=== PATIENT | female | born 1940 | race Caucasian/White ===

== ENCOUNTER 2023-03-07 06:56 | Inpatient (IN) | payer MEDICARE ==
[2023-03-05 14:54] LABS: BASOPHILS # (AUTO) 0.1 (0.0-0.1); BASOPHILS % 1.1 % (0.0-1.0); EOSINOPHILS # (AUTO) 0.1 (0.0-0.4); EOSINOPHILS % 1.3 % (0.0-6.0); HEMATOCRIT 40.2 % (34.2-44.1); HEMOGLOBIN 13.1 g/dL (12.0-16.0); LYMPHOCYTES # (AUTO) 2.1 (1.0-3.2); LYMPHOCYTES % 34.9 % (18.0-39.1); MEAN CORPUSCULAR HEMOGLOBIN 30.6 pg (28-32); MEAN CORPUSCULAR HGB CONC 32.6 g/dL (31-35); MEAN CORPUSCULAR VOLUME 93.9 fL (81-99); MONOCYTES # (AUTO) 0.5 (0.2-0.8); MONOCYTES % 8.6 % (4.4-11.3); NEUTROPHILS # (AUTO) 3.3 (2.1-6.9); NEUTROPHILS % 53.8 % (38.7-80.0); PLATELET COUNT 272 x10e3/uL (140-360); RED BLOOD COUNT 4.28 x10e6/uL (3.6-5.1); RED CELL DISTRIBUTION WIDTH 13.5 % (11.7-14.4); WHITE BLOOD COUNT 6.13 x10e3/uL (4.8-10.8)
[2023-03-05 15:12] LABS: ANION GAP 14.9 mmol/L (8-16); CALCIUM 9.3 mg/dL (8.4-10.2); CREATININE, SERUM 0.76 mg/dL (0.57-1.11); POTASSIUM 3.9 mmol/L (3.5-5.1)
[~2023-03-07] VITALS: Ht 162.6 cm; Wt 56.7 kg
[~2023-03-07 06:56] MED LIST: ALTOPREV40 MG PO; ASPIRIN81 MG PO; CALCIUM PO; FISH OIL 1,001000 M1 PO; LISINOPRIL5 MG PO; METOPROLOL SUCC25 MG PO; VITAMIN C1000 MG PO; VITAMIN D350 MC1 PO
[2023-03-07] MEDS ORDERED: LACTATED RINGER'S 1,000 ML ONE (07:23)
[2023-03-07] MEDS ORDERED: BUPIVACAINE 0.25% 30ML SDV ONE (08:16)
[2023-03-07] MEDS ORDERED: DEXMEDETOMIDINE HCL 0 ML ONE (08:56)
[2023-03-07] MEDS ORDERED: ACETAMINOPHEN 1000 MG/100 ML 100 ML IV ONE (08:57)
[2023-03-07] MEDS ORDERED: HYDROMORPHONE 1MG/1ML INJ ONE (08:57)
[2023-03-07] MEDS ORDERED: SUGAMMADEX SODIUM 200 MG/2 ML VIAL IV ONE (08:57)
[2023-03-07] MEDS ORDERED: ROPIVACAINE 246.25 MG, EPINEPHRINE HCL 1:1000 1ML 0.5 MG, CLONIDINE HCL 0.08 MG, KETORO... INJ ONE ×5 (11:30)
[2023-03-07] MEDS ORDERED: DEXAMETHASONE SOD PHOS INJ 4 MG/ML SDV ONE (12:00)
[2023-03-07] MEDS ORDERED: PROPOFOL IV EMULSION 10 MG/ML 20 ML VIAL ONE (12:00)
[2023-03-07] MEDS ORDERED: SUCCINYLCHOLINE CHLORIDE 20 MG/ML 10ML VIAL ONE (12:00)
[2023-03-07] MEDS ORDERED: ONDANSETRON HCL INJ 2MG/ML 2ML 2 MG/ML VIAL ONE (12:00)
[2023-03-07] MEDS ORDERED: LIDOCAINE HCL 2% LOCAL INJ 5 ML SDV VIAL INJ ONE (12:00)
[2023-03-07] MEDS ORDERED: ROCURONIUM BROMIDE 10 MG/ML 5ML VIAL IV ONE (12:00)
[2023-03-07] MEDS ORDERED: SEVOFLURANE INHAL SOLN 250 ML PEN BTL ONE (12:00)
[2023-03-07] MEDS ORDERED: ONDANSETRON HCL INJ 2MG/ML 2ML 2 MG/ML VIAL IV PRN (12:15)
[2023-03-07 13:49] VITALS: BP 144/58; PULSE 62; RESP 14; TEMP 97.9; O2SAT 98
[2023-03-07] MEDS: SODIUM CHLORIDE 0.9% 1000ML 1,000 ML IV SCH (15:20)
[2023-03-07] MEDS ORDERED: FENTANYL CITRATE/PF 100MCG/2 ML INJ ONE (15:24)
[2023-03-07 16:23] VITALS: BP 144/58; PULSE 62; RESP 14; TEMP 97.9; O2SAT 98
[2023-03-07 16:24] VITALS: BP 110/44; PULSE 66; RESP 14; TEMP 97.7; O2SAT 98
[2023-03-07] MEDS ORDERED: ACETAMINOPHEN 1000 MG/100 ML IV PRN (17:00)
[2023-03-07 18:13] VITALS: BP 110/44; PULSE 66; RESP 15; TEMP 97.7; O2SAT 98
[2023-03-07 20:02] VITALS: BP 130/60; PULSE 69; RESP 18; TEMP 98.1; O2SAT 95
[2023-03-07] MEDS: HYDROCODONE/APAP 5MG-325MG TAB PO PRN (20:33)
[2023-03-07] MEDS: LISINOPRIL 2.5 MG TAB PO SCH (20:33)
[2023-03-08] VITALS (9 sets, daily range): BP systolic 113–145; BP diastolic 45–70; PULSE 67–90; RESP 16–18; TEMP 97.9–98.8; O2SAT 90–98
[2023-03-08] MEDS: HYDROCODONE/APAP 5MG-325MG TAB PO PRN ×3 (01:04→23:10)
[2023-03-08] MEDS: SODIUM CHLORIDE 0.9% 1000ML 1,000 ML IV SCH ×2 (01:04→18:24)
[2023-03-08] MEDS: HYDROMORPHONE 1MG/1ML INJ IV PRN ×6 (02:53→22:21)
[2023-03-08] MEDS ORDERED: ONDANSETRON HCL 4 MG ORAL DISINTEGRATING TAB PO PRN (08:15)
[2023-03-08 08:48] LABS: BASOPHILS % 0.2 % (0.0-1.0); HEMATOCRIT 38.9 % (34.2-44.1); HEMOGLOBIN 12.4 g/dL (12.0-16.0); LYMPHOCYTES # (AUTO) 2.9 (1.0-3.2); LYMPHOCYTES % 18.2 % (18.0-39.1); MEAN CORPUSCULAR HEMOGLOBIN 30.5 pg (28-32); MEAN CORPUSCULAR HGB CONC 31.9 g/dL (31-35); MEAN CORPUSCULAR VOLUME 95.8 fL (81-99); MONOCYTES # (AUTO) 1.2 (0.2-0.8); MONOCYTES % 7.3 % (4.4-11.3); NEUTROPHILS # (AUTO) 11.8 (2.1-6.9); PLATELET COUNT 242 x10e3/uL (140-360); RED BLOOD COUNT 4.06 x10e6/uL (3.6-5.1); RED CELL DISTRIBUTION WIDTH 14.1 % (11.7-14.4); WHITE BLOOD COUNT 15.99 x10e3/uL (4.8-10.8)
[2023-03-08 09:32] LABS: CALCIUM 8.5 mg/dL (8.4-10.2); CREATININE, SERUM 0.73 mg/dL (0.57-1.11)
[2023-03-08] MEDS: METOPROLOL SUCCINATE 25 MG TAB XL PO SCH (10:08)
[2023-03-08] MEDS: LISINOPRIL 2.5 MG TAB PO SCH (20:44)
[2023-03-09] VITALS (7 sets, daily range): BP systolic 111–150; BP diastolic 57–72; PULSE 66–81; RESP 16–20; TEMP 98–100.3; O2SAT 18–99
[2023-03-09] MEDS: HYDROMORPHONE 1MG/1ML INJ IV PRN ×6 (00:39→20:33)
[2023-03-09 07:20] LABS: BASOPHILS % 0.3 % (0.0-1.0); HEMATOCRIT 34.7 % (34.2-44.1); LYMPHOCYTES # (AUTO) 1.3 (1.0-3.2); LYMPHOCYTES % 10.3 % (18.0-39.1); MEAN CORPUSCULAR HEMOGLOBIN 30.9 pg (28-32); MEAN CORPUSCULAR HGB CONC 31.7 g/dL (31-35); MEAN CORPUSCULAR VOLUME 97.5 fL (81-99); MONOCYTES % 7.8 % (4.4-11.3); NEUTROPHILS # (AUTO) 10.1 (2.1-6.9); NEUTROPHILS % 81.2 % (38.7-80.0); PLATELET COUNT 194 x10e3/uL (140-360); RED BLOOD COUNT 3.56 x10e6/uL (3.6-5.1); RED CELL DISTRIBUTION WIDTH 14.4 % (11.7-14.4); WHITE BLOOD COUNT 12.41 x10e3/uL (4.8-10.8)
[2023-03-09 08:00] LABS: ANION GAP 10.8 mmol/L (8-16); CALCIUM 8.3 mg/dL (8.4-10.2); CREATININE, SERUM 0.64 mg/dL (0.57-1.11); POTASSIUM 3.8 mmol/L (3.5-5.1)
[2023-03-09] MEDS: METOPROLOL SUCCINATE 25 MG TAB XL PO SCH (08:30)
[2023-03-09] MEDS: SODIUM CHLORIDE 0.9% 1000ML 1,000 ML IV SCH ×2 (08:35→17:35)
[2023-03-09] MEDS: LISINOPRIL 2.5 MG TAB PO SCH (20:33)
[2023-03-10] MEDS: TRAMADOL HCL 50 MG TAB PO PRN ×4 (01:17→19:43)
[2023-03-10 05:27] VITALS: BP 142/58; PULSE 75; RESP 18; TEMP 98.1; O2SAT 96
[2023-03-10 06:24] LABS: BASOPHILS % 0.5 % (0.0-1.0); EOSINOPHILS # (AUTO) 0.1 (0.0-0.4); EOSINOPHILS % 0.8 % (0.0-6.0); HEMATOCRIT 35.1 % (34.2-44.1); HEMOGLOBIN 11.6 g/dL (12.0-16.0); LYMPHOCYTES % 23.6 % (18.0-39.1); MEAN CORPUSCULAR HEMOGLOBIN 30.6 pg (28-32); MEAN CORPUSCULAR VOLUME 92.6 fL (81-99); MONOCYTES # (AUTO) 0.8 (0.2-0.8); MONOCYTES % 9.1 % (4.4-11.3); NEUTROPHILS # (AUTO) 5.6 (2.1-6.9); NEUTROPHILS % 65.5 % (38.7-80.0); PLATELET COUNT 221 x10e3/uL (140-360); RED BLOOD COUNT 3.79 x10e6/uL (3.6-5.1); RED CELL DISTRIBUTION WIDTH 13.7 % (11.7-14.4); WHITE BLOOD COUNT 8.59 x10e3/uL (4.8-10.8)
[2023-03-10 06:50] LABS: ANION GAP 11.8 mmol/L (8-16); CALCIUM 8.6 mg/dL (8.4-10.2); CREATININE, SERUM 0.64 mg/dL (0.57-1.11); POTASSIUM 3.8 mmol/L (3.5-5.1)
[2023-03-10 08:00] VITALS: BP 143/69; PULSE 70; RESP 19; TEMP 98.4; O2SAT 98
[2023-03-10 08:25] VITALS: BP 143/69; PULSE 70; RESP 19; TEMP 98.4; O2SAT 98
[2023-03-10] MEDS: METOPROLOL SUCCINATE 25 MG TAB XL PO SCH (08:41)
[2023-03-10 11:38] VITALS: BP 142/72; PULSE 68; RESP 19; TEMP 97.9; O2SAT 94
[2023-03-10] MEDS: SODIUM CHLORIDE 0.9% 1000ML 1,000 ML IV SCH (14:30)
[2023-03-10 15:58] VITALS: BP 150/63; PULSE 58; RESP 18; TEMP 98.4; O2SAT 93
== END 2023-03-10 19:54 | disposition home or self-care (01) | DRG 354 ==
LOC: OR 06:56 → PACU V 13:24 → MED/SURG 13:29
PROVIDERS: ADMIT Surgery; ATTEND Surgery
PROC: 0WUF0JZ Supplement Abdominal Wall with Synthetic Substitute, Open Approach (ICD-10-PCS; principal; 2023-03-07 09:32)
DX: K43.6 Other and unspecified ventral hernia with obstruction, without gangrene (principal); I50.32 Chronic diastolic (congestive) heart failure; E78.5 Hyperlipidemia, unspecified; I48.91 Unspecified atrial fibrillation; I34.0 Nonrheumatic mitral (valve) insufficiency; I11.0 Hypertensive heart disease with heart failure; I27.20 Pulmonary hypertension, unspecified; I08.1 Rheumatic disorders of both mitral and tricuspid valves; Z79.899 Other long term (current) drug therapy; Z79.82 Long term (current) use of aspirin; Z86.718 Personal history of other venous thrombosis and embolism
CPT/HCPCS: 36415; 71046; 80048; 85025; 93005; C1781; J0171; J0330; J0690; J1100; J1170; J1885; J2001; J2405; J2795; J7030; Q0162